=== PATIENT | female | born 2000 | race Caucasian/White ===

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

== ENCOUNTER 2018-05-15 21:02 | Emergency (ER) | END 2018-05-15 23:35 | disposition home or self-care (01) ==

== ENCOUNTER 2018-10-21 10:33 | Emergency (ER) | payer OTHER ==
[~2018-10-21] VITALS: Wt 59.1 kg
[~2018-10-21 10:33] MED LIST changes: +ALBU8.5H8 INH; +AMOX500C2 PO; +BENZ-6 PO; +IBUP-1541 PO; +IBUP-1561 PO; -IBUP400T22 PO; -NAPR-260 PO; +NAPR-985 PO; +PRED20TA PO
[2018-10-21] MEDS ORDERED: HYDROCODONE/APAP (5/325) TAB PO ONE (11:30)
[2018-10-21] MEDS ORDERED: NAPR-985 PO (12:01)
[2018-10-21] MEDS ORDERED: IODIXANOL LOCM 100 ML BTL ONE (12:43)
[2018-10-21] MEDS ORDERED: SOD CHLORIDE 0.9% 100 ML ONE (12:43)
[2018-10-21] MEDS ORDERED: METOCLOPRAMIDE 10 MG INJ IV ONE (13:00)
[2018-10-21] MEDS ORDERED: DEXAMETHASONE 10 MG/ML 1 ML INJ IV ONE (13:00)
[2018-10-21] MEDS ORDERED: DIPHENHYDRAMINE 50 MG INJ IV ONE (13:00)
[2018-10-21] MEDS ORDERED: HYDR-4011 PO (14:14)
[2018-10-21 14:20] VITALS: BP 94/54; PULSE 60; RESP 18
--- NOTE | 2018-10-21 16:58 | ERD ---
ER Documentation Chief Complaint Chief Complaint head pain when straining from couch this morning. no neuro deficit/trauma HPI 18-year-old female presenting to the emergency department complaining of sudden onset, severe left occipital lobe pain after standing up quickly this morning. Symptom onset was approximately 3 hours prior to my examination. She states the pain was the worst pain of her life rated 10/10 in severity. She took 600 mg ibuprofen and states the pain improved to a 9 out of 10. She denies any neck pain or stiffness. She denies any photophobia or fevers. She has never had these symptoms in the past. No other symptoms reported at this time. ROS All systems reviewed and are negative except as per history of present illness. Medications Home Meds Active Scripts Hydrocodone/Acetaminophen ([place] 5-325 Tablet) 1 Each Tablet, 1 TAB PO Q6H PRN for PAIN, #7 TAB Prov:KAYLA BIRD PA-C 10/21/18 Naproxen* (Naprosyn*) 500 Mg Tablet, 500 MG PO BID PRN for PAIN AND/OR INFLAMMATION, #30 TAB Prov:KAYLA BIRD PA-C 10/21/18 Ibuprofen* (Motrin*) 400 Mg Tab, 400 MG PO Q6, #30 TAB Prov:KAYLA BIRD PA-C 05/15/18 Amoxicillin* (Amoxicillin*) 500 Mg Cap, 500 MG PO TID for 10 Days, CAP Prov:KAYLA BIRD PA-C 05/15/18 Benzonatate* (Tessalon Perle*) 100 Mg Capsule, 100 MG PO Q8H PRN for COUGH, #20 CAP Prov:MERLYN EDOUARD PA-C 04/23/17 Prednisone* (Prednisone*) 20 Mg Tab, 40 MG PO DAILY for 4 Days, TAB Prov:MERLYN EDOUARD PA-C 04/23/17 Albuterol Sulfate* (Proair HFA*) 8.5 Gm Hfa.aer.ad, 2 PUFF INH Q4, #1 INHALER Prov:MERLYN EDOUARD PA-C 04/23/17 Acetaminophen* (Tylophen*) 500 Mg Capsule, 1 CAP PO Q6H PRN for PAIN AND OR ELEVATED TEMP, #30 CAP Prov:OMAR CHOU PA-C 12/30/16 Naproxen* (Naprosyn*) 500 Mg Tablet, 500 MG PO BID PRN for PAIN AND/OR INFLAMMATION, #30 TAB Prov:OMAR CHOU PA-C 12/30/16 Ibuprofen* (Motrin*) 400 Mg Tab, 400 MG PO Q8, #30 TAB Prov:FELICIANO WATKINS, LINE ASSIGNER 06/13/16 Ciprofloxacin Hcl* (Ciprofloxacin Hcl*) 500 Mg Tablet, 500 MG PO BID for 10 Days, TAB Prov:EDWARD TRAORE. LINE ASSIGNER 11/05/14 Ibuprofen* (Ibuprofen*) 400 Mg Tablet, 400 MG PO Q6H PRN for PAIN AND OR ELEVATED TEMP, #30 Prov:EDWARD TRAORE. LINE ASSIGNER 11/05/14 Allergies Allergies: Coded Allergies: No Known Allergy (Unverified , 05/24/14) PMhx/Soc History of Surgery: No Anesthesia Reaction: No Hx Neurological Disorder: No Hx Respiratory Disorders: No Hx Cardiac Disorders: No Hx Psychiatric Problems: No Hx Miscellaneous Medical Probl: No (anemia) Hx Alcohol Use: No Hx Substance Use: Yes (MJ daily) Hx Tobacco Use: No FmHx Family History: No diabetes Physical Exam Vitals Vital Signs Date Temp Pulse Resp B/P (MAP) Pulse Ox O2 O2 Flow FiO2 Time Delivery Rate 10/21/18 98.4 60 18 94/54 (67) 98 Room Air 14:20 10/21/18 98.0 88 18 115/58 98 10:35 (77) Physical Exam Const: No acute distress Head: Atraumatic Eyes: Normal Conjunctiva ENT: Normal External Ears, Nose and Mouth. Neck: Full range of motion. No meningismus. Resp: Clear to auscultation bilaterally Cardio: Regular rate and rhythm, no murmurs Skin: No petechiae or rashes Back: No midline or flank tenderness Ext: No cyanosis, or edema Neur: Awake and alert Neuro: M/S: Alert and oriented Face: EOMI, face and pharynx with normal sensation and function Motor: Normal strength throughout Sensation: Normal sensation throughout Speech: Normal Cerebel: Normal coordination Normal gait Normal finger to nose Psych: Normal Mood and Affect Result Diagram: 10/21/18 1245 10/21/18 1245 Results 24 hrs Laboratory Tests Test 10/21/18 12:45 10/21/18 12:58 White Blood Count 8.1 10^3/ul Red Blood Count 4.62 10^6/ul Hemoglobin 13.7 g/dl Hematocrit 41.7 % Mean Corpuscular Volume 90.3 fl Mean Corpuscular Hemoglobin 29.7 pg Mean Corpuscular Hemoglobin Concent 32.9 g/dl Red Cell Distribution Width 13.9 % Platelet Count 300 10^3/UL Mean Platelet Volume 10.9 fl Immature Granulocytes % 0.200 % Neutrophils % 73.9 % Lymphocytes % 19.4 % Monocytes % 4.6 % Eosinophils % 1.2 % Basophils % 0.7 % Nucleated Red Blood Cells % 0.0 /100WBC Immature Granulocytes # 0.020 10^3/ul Neutrophils # 6.0 10^3/ul Lymphocytes # 1.6 10^3/ul Monocytes # 0.4 10^3/ul Eosinophils # 0.1 10^3/ul Basophils # 0.1 10^3/ul Nucleated Red Blood Cells # 0.0 10^3/ul Sodium Level 139 mmol/L Potassium Level 3.9 mmol/L Chloride Level 108 mmol/L Carbon Dioxide Level 24 mmol/L Anion Gap 7 Blood Urea Nitrogen 9 mg/dl Creatinine 0.48 mg/dl Est Glomerular Filtrat Rate mL/min > 60 mL/min Glucose Level 99 mg/dl Calcium Level 9.4 mg/dl POC Beta HCG, Qualitative NEGATIVE Current Medications Medications Dose Sig/Haim Start Time Status Last (Trade) Ordered Route PRN Stop Time Admin Dose Reason Admin 1 tab ONCE ONCE 10/21/18 DC 10/21/18 Acetaminophen PO 11:30 11:16 / 10/21/18 11:31 Hydrocodone Bitart ([place] (5/325)) 5 mg ONCE ONCE 10/21/18 DC 10/21/18 Metoclopramid IV 13:00 13:13 e HCl 10/21/18 13:01 (Reglan) 10 mg ONCE ONCE 10/21/18 DC 10/21/18 Dexamethasone IV 13:00 13:13 (Decadron) 10/21/18 13:01 25 mg ONCE ONCE 10/21/18 DC 10/21/18 Diphenhydrami IV 13:00 13:13 ne HCl 10/21/18 13:01 (Benadryl) IV Flush 10 ml STK-MED 10/21/18 DC 10/21/18 (NS 10 ml) ONCE .ROUTE 12:43 13:01 10/21/18 12:44 Sodium 100 ml @ ud STK-MED 10/21/18 DC 10/21/18 Chloride ONCE .ROUTE 12:43 13:05 10/21/18 12:44 Iodixanol 100 ml STK-MED 10/21/18 DC 10/21/18 (Visipaque ONCE .ROUTE 12:43 13:05 Locm) 10/21/18 12:44 [place] [id number] Radiology Main Line: [phone] DIAGNOSTIC IMAGING REPORT Patient: JOSE ROQUE : 2000 Age: 18 Sex: F MR #: [id number] DOS: 10/21/18 1235 Ordering MD: KAYLA BIRD PA-C Location: FTE Room/Bed: PROCEDURE: CTA Head. CLINICAL INDICATION: Headaches TECHNIQUE: The study was performed utilizing a GE 64-slice multidetector CT scanner. Direct spiral axial sections were obtained through the intracranial vasculature with the use of 100 cc of Visipaque 320 nonionic intravenous contrast material. Coronal and sagittal as well as maximal intensity projection reformations were obtained. The images were reviewed on a PACS workstation. The CTDI vol is 67.01 mGy mGy and the DLP is 646.67 mGy.cm mGy-cm. DICOM images are available. One or more of the following dose reduction techniques were used: Automated exposure control. Adjustment of the mA and/or kV according to patient size. Use of iterative reconstruction technique. COMPARISON: No prior studies are available for comparison. FINDINGS: The [place] and vertebrobasilar system is without evidence for a hemodynamically significant stenosis or occlusion. No evidence of an aneurysm or vascular malformation is seen. The visualized sinuses and dural veins are without abnormality. IMPRESSION: Unremarkable CT angiogram of the intracranial vasculature. RPTAT: HPNM Physician Franco Date Time Electronically viewed and signed by Manish Kennedy Physician on 10/21/2018 13:39 / CC: KAYLA BIRD PA-C [phone] [place] [address] Radiology Main Line: [phone] DIAGNOSTIC IMAGING REPORT Patient: JOSE ROQUE : 2000 Age: 18 Sex: F MR #: [id number] DOS: 10/21/18 0000 Ordering MD: KAYLA BIRD PA-C Location: FTE Room/Bed: PROCEDURE: CT Brain without contrast. CLINICAL INDICATION: Severe headache. TECHNIQUE: A CT of the brain without contrast was performed utilizing axial sections from the skull base through the vertex. One or more the following does reduction techniques were utilized: Automated exposure control, adjustment of the mA/ or kV according to patient's size, or use of iterative reconstruction technique. Total exam CTDIvol is 38 MGy and DLP is 527 mGy-cm. DICOM images are available. COMPARISON: None available. FINDINGS: The ventricles and sulci are age-appropriate. There is no intracranial hemorrhage, mass effect or midline shift. No abnormal intra-axial or extra- axial fluid collections are seen. The jordan/white matter differentiation is preserved. No acute skull abnormality is noted. The visualized paranasal sinuses are essentially clear. IMPRESSION: 1. No acute intracranial hemorrhage, transcortical infarction or mass effect. RPTAT: EE .Cceil Edmondson MD, MD Date Time Electronically viewed and signed by .Cecil Edmondson MD, MD on 10/21/2018 11:44 .N/ CC: KAYLA BIRD PA-C [phone] Procedures/MDM 18-year-old female presenting to the emergency department complaining of severe, sudden onset occipital region headache which began earlier this morning. Differential diagnoses included TIA, CVA, subarachnoid hemorrhage, subdural hemorrhage, meningitis, tension headache, migraine headache, and others. Patient was a ministered [place], IV fluids, IV Reglan, IV Benadryl with improvement of her symptoms. Patient had negative serial neuro examinations. CT angiogram and CT head without contrast were negative for acute ab normalities. Patient's urine was negative. Lab work was essentially unremarkable. Because intracranial bleed could not be adequately ruled out, I did consult the attending ED physician, Dr. Blessing Spring, who agreed with the ED course and recommended lumbar puncture. I did discuss the full risks, benefits, alternatives of lumbar puncture with the patient and she declined. Th e patient did sign an AGAINST MEDICAL ADVICE form refusing the lumbar puncture. She was given paperwork regarding her diagnosis and a prescription for pain and was advised she may return to the department at any moment should she change her mind. She demonstrated good understanding of information provided. Departure Diagnosis: Primary Impression: Headache Condition: Fair Patient Instructions: Self-Care for Headaches Referrals: [facility] YOU HAVE RECEIVED A MEDICAL SCREENING EXAM AND THE RESULTS INDICATE THAT YOU DO NOT HAVE A CONDITION THAT REQUIRES URGENT TREATMENT IN THE EMERGENCY DEPARTMENT. FURTHER EVALUATION AND TREATMENT OF YOUR CONDITION CAN WAIT UNTIL YOU ARE SEEN IN YOUR DOCTORS OFFICE WITHIN THE NEXT 1-2 DAYS. IT IS YOUR RESPONSIBILITY TO MAKE AN APPOINTMENT FOR FOLOW-UP CARE. IF YOU HAVE A PRIMARY DOCTOR --you should call your primary doctor and schedule an appointment IF YOU DO NOT HAVE A PRIMARY DOCTOR YOU CAN CALL OUR PHYSICIAN REFERRAL HOTLINE AT IF YOU CAN NOT AFFORD TO SEE A PHYSICIAN YOU CAN CHOSE FROM THE FOLLOWING [facility] [address] [facility] [address] [facility] [address] [facility] [address] [facility] [address] [facility] [facility]. [address] Additional Instructions: Call your primary care doctor TOMORROW for an appointment during the next 1-2 days.See the doctor sooner or return here if your condition worsens before your appointment time. KAYLA BIRD PA-C October 21, 2018 16:58
== END 2018-10-21 14:22 | disposition home or self-care (01) ==
LOC: FTE 10:33
DX: R51 Headache (principal)
CPT/HCPCS: 70450; 70496; 80048; 81025; 85025; 96374; 96375; J1100; J1200; J2765; Q9967; Z7502; Z7610

== ENCOUNTER 2019-02-17 18:28 | Emergency (ER) | payer OTHER ==
[~2019-02-17] VITALS: Ht 162.6 cm; Wt 61.4 kg
[~2019-02-17 18:28] MED LIST changes: +HYDR-4011 PO
[2019-02-17 18:30] VITALS: Ht 162.6 cm; Wt 61.4 kg
[2019-02-17 21:08] VITALS: BP 120/60; PULSE 66; RESP 18
== END 2019-02-17 21:08 | disposition home or self-care (01) ==
LOC: FTE 18:28
DX: R10.2 Pelvic and perineal pain (principal)
CPT/HCPCS: 36415; 76856; 80048; 81003; 81025; 83690; 85025